=== PATIENT | female | born 1935 | race Caucasian/White ===

== ENCOUNTER 2019-11-30 18:37 | Emergency (ER) | payer OTHER, MEDICAID ==
[~2019-11-30] VITALS: Ht 142.2 cm; Wt 56.7 kg
[2019-11-30 18:52] VITALS: BP_SYST 154
--- NOTE | 2019-11-30 23:57 | NUR ---
called for bed placement. patient not in waiting room
--- NOTE | 2019-12-01 | NUR ---
called for bed placement. Patient not in waiting room.
--- NOTE | 2019-12-01 00:42 | NUR ---
called for bed placement. Patient left without being seen.
== END 2019-12-01 00:42 | disposition left against medical advice (07) ==
LOC: SED 18:37
DX: M79.89 Other specified soft tissue disorders (principal); Z53.21 Procedure and treatment not carried out due to patient leaving prior to being seen by health care provider

== ENCOUNTER 2020-11-06 13:13 | Inpatient (IN) | payer OTHER, MEDICAID, SELFPAY ==
[~2020-11-06] VITALS: Ht 157.5 cm; Wt 51.7 kg
[2020-11-06 13:13] VITALS: BP_SYST 82
[2020-11-06] MEDS ORDERED: NACL 0.9% 1,000 ML IV ONE ×2 (13:30→15:30)
[2020-11-06] MEDS ORDERED: ACET325T53 PO (13:44)
[2020-11-06] MEDS ORDERED: FLUO15CR49 TP (13:44)
[2020-11-06] MEDS ORDERED: FLUT16SP16 NS (13:44)
[2020-11-06] MEDS ORDERED: PEPTO PO (13:44)
[2020-11-06] MEDS ORDERED: DEC4 PO (13:44)
[2020-11-06] MEDS ORDERED: OMEP20CA15 PO (13:44)
[2020-11-06] MEDS ORDERED: HYDR-3610 PO (13:44)
[2020-11-06] MEDS ORDERED: GLIP10TA11 PO (13:44)
[2020-11-06] MEDS ORDERED: PIOG30TA70 PO (13:44)
[2020-11-06] MEDS ORDERED: [UNRECOGNIZED DRUG - CODE] OP (13:44)
[2020-11-06] MEDS ORDERED: ACETAMINOPHEN #3 PO (13:44)
[2020-11-06] MEDS ORDERED: ONDA4TAB5 PO (13:44)
[2020-11-06] MEDS ORDERED: DOCU-144 PO (13:44)
[2020-11-06] MEDS ORDERED: [UNRECOGNIZED DRUG - CODE] MC (13:44)
[2020-11-06] MEDS ORDERED: OLAN2.5T29 PO (13:44)
[2020-11-06] MEDS ORDERED: MULT-1117 PO (13:44)
[2020-11-06] MEDS ORDERED: HYDR-4272 PO (13:44)
[2020-11-06] MEDS ORDERED: VITC1TAB (13:44)
[2020-11-06] MEDS ORDERED: GABA-529 PO (13:44)
[2020-11-06] MEDS ORDERED: IBUP-2018 PO (13:44)
[2020-11-06 14:06] LABS: BASOPHILS # (AUTO) 0.1 K/uL (0.0-0.2); BASOPHILS % (AUTO) 0.5 % (0.0-2.0); HEMOGLOBIN 9.1 g/dL (12.0-16.0); LYMPHOCYTES # (AUTO) 0.7 K/uL (1.0-5.5); LYMPHOCYTES % (AUTO) 4.7 % (20.5-51.5); MEAN CORPUSCULAR HEMOGLOBIN 32 pg (27-31); MEAN CORPUSCULAR HGB CONC 33 % (32-36); MEAN CORPUSCULAR VOLUME 95 fL (79.0-98.0); MONOCYTES # (AUTO) 0.9 K/uL (0.0-1.0); MONOCYTES % (AUTO) 6.2 % (1.7-9.3); NEUTROPHILS # (AUTO) 12.9 K/uL (1.8-7.7); NEUTROPHILS % (AUTO) 88.6 % (40.0-70.0); PLATELET COUNT (AUTO) 141 K/uL (130-430); RED BLOOD CELL COUNT(AUTO) 2.87 MIL/uL (4.2-6.2); RED CELL DISTRIBUTION WIDTH 14.9 % (9.0-15.0); WHITE BLOOD COUNT (AUTO) 14.5 K/uL (4.8-10.8)
[2020-11-06 14:09] LABS: HEMATOCRIT 27.3 % (36-48)
[2020-11-06 14:11] LABS: ANION GAP 9 (5-15); CALCIUM 8.1 mg/dL (8.4-11.0); CHLORIDE 102 mmol/L (98-107); CREATININE 1.48 mg/dL (0.55-1.30); GLUCOSE 232 mg/dL (70-99); POTASSIUM 4.5 mmol/L (3.5-5.1); SODIUM SERUM 134 mmol/L (136-145); UREA NITROGEN, BLOOD 32 mg/dL (8-21)
[2020-11-06 14:17] LABS: ALANINE AMINOTRANSFERASE 15 U/L (12-78); ALBUMIN 2.7 g/dL (3.4-4.8); ASPARTATE AMINOTRANSFERASE 19 U/L (10-37); TOTAL BILIRUBIN 0.4 mg/dL (0.0-1.0)
[2020-11-06 14:45] LABS: BILIRUBIN,URINE NEGATIVE (NEGATIVE); CLARITY/URINE CLEAR (CLEAR); COLOR,URINE YELLOW (YELLOW); GLUCOSE,URINE NEGATIVE (NEGATIVE); KETONES,URINE NEGATIVE (NEGATIVE); LEUKOCYTE ESTERASE ,URINE 1+ (NEGATIVE); NITRITE, URINE NEGATIVE (NEGATIVE); PROTEIN URINE NEGATIVE (NEGATIVE); UROBILINOGEN,URINE 0.2 (0.2-1.0)
[2020-11-06 14:47] LABS: BLOOD, URINE TRACE (NEGATIVE)
[2020-11-06 14:53] LABS: BACTERIA,URINE FEW /HPF (None Seen); MUCUS,URINE 1+ /LPF (None Seen); RBC,URINE 0-3 /HPF (0-3)
[2020-11-06] MEDS ORDERED: cefTRIAXone 1 GM VIAL ONE (14:59)
[2020-11-06] MEDS ORDERED: cefTRIAXone 1 GM in D5W 50 ML IV ONE (15:00)
[2020-11-06 16:07] VITALS: BP_SYST 105
[2020-11-06] MEDS ORDERED: DEXTROSE 50% JECT 50 ML DISP.SYRIN IVP PRN (16:30)
[2020-11-06] MEDS ORDERED: NALOXONE HCL 0.4 MG/ML AMP (NARCAN) IVP PRN (16:45)
[2020-11-06] MEDS ORDERED: ONDANSETRON 4 MG ODT TAB PO PRN (16:45)
[2020-11-06] MEDS ORDERED: ACETAMINOPHEN 325 MG TABLET PO PRN (16:45)
[2020-11-06] MEDS: INSULIN REGULAR, HUMAN 100 UNITS/ML, 10 ML VIAL (humuLIN R) SUBCUT PRN (17:38)
[2020-11-06] MEDS: PIPERACILLIN/TAZO 2.25G/DEX-IS 50 ML IV SCH (19:15)
[2020-11-06 20:00] VITALS: BP_SYST 133
[2020-11-06] MEDS: GABAPENTIN 100 MG CAPSULE PO SCH (21:00)
[2020-11-06] MEDS ORDERED: OLANZapine 2.5 MG TABLET PO SCH (21:00)
[2020-11-06] MEDS ORDERED: PEG 400/HYPROMELLOSE/GLYCERIN 15 ML DROPS OP PRN (21:00)
[2020-11-06] MEDS: DOCUSATE SODIUM 100 MG CAPSULE PO SCH (21:00)
[2020-11-06] MEDS: NACL 0.9% 1,000 ML IV SCH (21:30)
[2020-11-07] MEDS: NACL 0.9% 1,000 ML IV SCH (02:30)
[2020-11-07 04:00] VITALS: BP_SYST 129
[2020-11-07] MEDS: PIPERACILLIN/TAZO 2.25G/DEX-IS 50 ML IV SCH ×4 (04:45→17:53)
[2020-11-07] MEDS: HYDROcodone/ACETAMIN 5-325 MG TAB (NORCO/ VICODIN) PO SCH ×2 (05:00→16:08)
[2020-11-07 07:10] LABS: BASOPHILS % (AUTO) 0.1 % (0.0-2.0); EOSINOPHILS # (AUTO) 0.1 K/uL (0.0-0.4); EOSINOPHILS % (AUTO) 0.8 % (0.0-4.0); HEMATOCRIT 27.7 % (36-48); HEMOGLOBIN 9.3 g/dL (12.0-16.0); LYMPHOCYTES # (AUTO) 0.8 K/uL (1.0-5.5); LYMPHOCYTES % (AUTO) 5.8 % (20.5-51.5); MEAN CORPUSCULAR HEMOGLOBIN 32 pg (27-31); MEAN CORPUSCULAR HGB CONC 34 % (32-36); MEAN CORPUSCULAR VOLUME 95 fL (79.0-98.0); MONOCYTES # (AUTO) 0.6 K/uL (0.0-1.0); MONOCYTES % (AUTO) 4.5 % (1.7-9.3); NEUTROPHILS # (AUTO) 12.1 K/uL (1.8-7.7); NEUTROPHILS % (AUTO) 88.8 % (40.0-70.0); PLATELET COUNT (AUTO) 147 K/uL (130-430); RED BLOOD CELL COUNT(AUTO) 2.92 MIL/uL (4.2-6.2); WHITE BLOOD COUNT (AUTO) 13.6 K/uL (4.8-10.8)
[2020-11-07 07:26] LABS: ALANINE AMINOTRANSFERASE 16 U/L (12-78); ALBUMIN 2.4 g/dL (3.4-4.8); ANION GAP 8 (5-15); ASPARTATE AMINOTRANSFERASE 19 U/L (10-37); CALCIUM 8.3 mg/dL (8.4-11.0); CHLORIDE 111 mmol/L (98-107); CREATININE 0.89 mg/dL (0.55-1.30); FREE T4 (FREE THYROXINE) 1.2 ng/dl (0.8-1.5); GLUCOSE 59 mg/dL (70-99); POTASSIUM 3.7 mmol/L (3.5-5.1); SODIUM SERUM 145 mmol/L (136-145); TOTAL BILIRUBIN 0.2 mg/dL (0.0-1.0); UREA NITROGEN, BLOOD 23 mg/dL (8-21)
[2020-11-07 08:00] VITALS: BP_SYST 154
[2020-11-07] MEDS ORDERED: PIOGLITAZONE HCL 30 MG TABLET PO SCH (09:00)
[2020-11-07] MEDS: DOCUSATE SODIUM 100 MG CAPSULE PO SCH ×3 (09:52→21:42)
[2020-11-07] MEDS: PANTOPRAZOLE SODIUM 40 MG TAB PO SCH (09:52)
[2020-11-07] MEDS: MULTIVITAMINS TAB 1 TABLET PO SCH (09:52)
[2020-11-07] MEDS: FLUTICASONE PROPIONATE 50 mCg/SPRAY 16 GM NS SCH (09:53)
[2020-11-07] MEDS: GABAPENTIN 100 MG CAPSULE PO SCH ×2 (09:53→21:40)
[2020-11-07 12:00] VITALS: BP_SYST 132
[2020-11-07] MEDS: INSULIN REGULAR, HUMAN 100 UNITS/ML, 10 ML VIAL (humuLIN R) SUBCUT PRN (12:20)
[2020-11-07 16:00] VITALS: BP_SYST 96
[2020-11-07 20:00] VITALS: BP_SYST 125
[2020-11-07] MEDS: OLANZapine 2.5 MG TABLET PO SCH (21:00)
[2020-11-08] MEDS: PIPERACILLIN/TAZO 2.25G/DEX-IS 50 ML IV SCH ×5 (00:25→23:17)
[2020-11-08 00:27] VITALS: BP_SYST 135
[2020-11-08] MEDS: NACL 0.9% 1,000 ML IV SCH ×4 (03:30→13:30)
[2020-11-08] MEDS ORDERED: HYDROcodone/ACETAMIN 5-325 MG TAB (NORCO/ VICODIN) PO PRN (07:31)
[2020-11-08] MEDS ORDERED: ACETAMINOPHEN/CODEINE 300 MG-30 MG TABLET PO PRN (07:45)
[2020-11-08 08:18] VITALS: BP_SYST 136
[2020-11-08] MEDS: DOCUSATE SODIUM 100 MG CAPSULE PO SCH ×2 (08:47→21:00)
[2020-11-08] MEDS: GABAPENTIN 100 MG CAPSULE PO SCH ×2 (08:47→21:18)
[2020-11-08] MEDS: FLUTICASONE PROPIONATE 50 mCg/SPRAY 16 GM NS SCH (08:47)
[2020-11-08] MEDS: MULTIVITAMINS TAB 1 TABLET PO SCH (08:47)
[2020-11-08] MEDS: PANTOPRAZOLE SODIUM 40 MG TAB PO SCH (08:47)
[2020-11-08 12:00] VITALS: BP_SYST 126
[2020-11-08] MEDS: INSULIN REGULAR, HUMAN 100 UNITS/ML, 10 ML VIAL (humuLIN R) SUBCUT PRN ×2 (17:15→21:24)
[2020-11-08 19:23] VITALS: BP_SYST 158
[2020-11-08] MEDS: OLANZapine 2.5 MG TABLET PO SCH (21:00)
[2020-11-09] VITALS: BP_SYST 126
[2020-11-09] MEDS: PIPERACILLIN/TAZO 2.25G/DEX-IS 50 ML IV SCH ×2 (06:19→12:08)
[2020-11-09 06:53] LABS: BASOPHILS # (AUTO) 0.1 K/uL (0.0-0.2); BASOPHILS % (AUTO) 0.8 % (0.0-2.0); EOSINOPHILS # (AUTO) 0.2 K/uL (0.0-0.4); EOSINOPHILS % (AUTO) 2.1 % (0.0-4.0); HEMATOCRIT 27.4 % (36-48); HEMOGLOBIN 9.5 g/dL (12.0-16.0); LYMPHOCYTES # (AUTO) 1.4 K/uL (1.0-5.5); MEAN CORPUSCULAR HEMOGLOBIN 32 pg (27-31); MEAN CORPUSCULAR HGB CONC 35 % (32-36); MEAN CORPUSCULAR VOLUME 94 fL (79.0-98.0); MONOCYTES # (AUTO) 0.6 K/uL (0.0-1.0); MONOCYTES % (AUTO) 6.6 % (1.7-9.3); NEUTROPHILS # (AUTO) 6.3 K/uL (1.8-7.7); NEUTROPHILS % (AUTO) 74.5 % (40.0-70.0); PLATELET COUNT (AUTO) 176 K/uL (130-430); RED BLOOD CELL COUNT(AUTO) 2.93 MIL/uL (4.2-6.2); RED CELL DISTRIBUTION WIDTH 14.7 % (9.0-15.0); WHITE BLOOD COUNT (AUTO) 8.5 K/uL (4.8-10.8)
[2020-11-09 07:44] LABS: ANION GAP 9 (5-15); CALCIUM 8.5 mg/dL (8.4-11.0); CHLORIDE 110 mmol/L (98-107); CREATININE 0.85 mg/dL (0.55-1.30); GLUCOSE 86 mg/dL (70-99); POTASSIUM 3.7 mmol/L (3.5-5.1); SODIUM SERUM 145 mmol/L (136-145); UREA NITROGEN, BLOOD 7 mg/dL (8-21)
[2020-11-09 08:27] VITALS: BP_SYST 152
[2020-11-09] MEDS: DOCUSATE SODIUM 100 MG CAPSULE PO SCH (09:00)
[2020-11-09] MEDS: MULTIVITAMINS TAB 1 TABLET PO SCH (09:44)
[2020-11-09] MEDS: GABAPENTIN 100 MG CAPSULE PO SCH (09:45)
[2020-11-09] MEDS: FLUTICASONE PROPIONATE 50 mCg/SPRAY 16 GM NS SCH (09:45)
[2020-11-09] MEDS: PANTOPRAZOLE SODIUM 40 MG TAB PO SCH (09:45)
[2020-11-09 11:46] VITALS: BP_SYST 145
[2020-11-09] MEDS ORDERED: LEVO500T89 PO (12:11)
[2020-11-09 15:17] VITALS: BP_SYST 145
== END 2020-11-09 17:42 | disposition home health service (06) | DRG 871 ==
LOC: SED 13:13 → STU 15:50
PROVIDERS: ADMIT Internal Medicine; ATTEND Internal Medicine
DX: A41.9 Sepsis, unspecified organism (principal); N17.0 Acute kidney failure with tubular necrosis; G93.41 Metabolic encephalopathy; N39.0 Urinary tract infection, site not specified; E44.0 Moderate protein-calorie malnutrition; I44.7 Left bundle-branch block, unspecified; M54.32 Sciatica, left side; E78.5 Hyperlipidemia, unspecified; F32.9 Major depressive disorder, single episode, unspecified; R07.89 Other chest pain; E11.40 Type 2 diabetes mellitus with diabetic neuropathy, unspecified; C50.919 Malignant neoplasm of unspecified site of unspecified female breast; E86.0 Dehydration; Z20.822 Contact with and (suspected) exposure to COVID-19; D64.9 Anemia, unspecified; G89.4 Chronic pain syndrome; K21.9 Gastro-esophageal reflux disease without esophagitis; I10 Essential (primary) hypertension; Z91.041 Radiographic dye allergy status; Z79.899 Other long term (current) drug therapy; Z68.20 Body mass index [BMI] 20.0-20.9, adult
CPT/HCPCS: 36415; 71045; 72131; 76376; 80048; 80053; 81000-TC; 82550-TC; 82962; 83036; 83605; 84439; 84484; 85025; 87040-TC; 87086; 93005; 93306; 96361; 96365; 97110-GP; 97116-GP; 97530-GP; G0378; J0696; J1815; J2543; J7030

== ENCOUNTER 2023-06-20 08:03 | Emergency (ER) | payer OTHER, MEDICAID ==
[~2023-06-20] VITALS: Ht 157.5 cm; Wt 65.8 kg
[~2023-06-20 08:03] MED LIST: ACET325T53 PO; ACETAMINOPHEN #3 PO; DEC4 PO; DOCU-144 PO; FLUO15CR49 TP; FLUT16SP16 NS; GABA-529 PO; GLIP10TA11 PO; HYDR-3610 PO; HYDR-4272 PO; IBUP-2018 PO; LEVO-62 PO; MULT-1117 PO; OLAN2.5T29 PO; OMEP20CA15 PO; ONDA4TAB5 PO; PEPTO PO; PIOG30TA70 PO; VITC1TAB; [UNRECOGNIZED DRUG - CODE] MC; [UNRECOGNIZED DRUG - CODE] OP
[2023-06-20 08:09] VITALS: BP_SYST 126; PULSE 67; RESP 19; TEMP 97.9; O2SAT 98
[2023-06-20 08:10] VITALS: BP_SYST 127; PULSE 70; RESP 19; TEMP 98; O2SAT 98
[2023-06-20 08:37] LABS: BASOPHILS % (AUTO) 0.8 % (0.0-2.0); EOSINOPHILS # (AUTO) 0.1 K/uL (0.0-0.4); HEMATOCRIT 38.4 % (36-48); HEMOGLOBIN 12.7 g/dL (12.0-16.0); LYMPHOCYTES # (AUTO) 0.8 K/uL (1.0-5.5); LYMPHOCYTES % (AUTO) 25.9 % (20.5-51.5); MEAN CORPUSCULAR HEMOGLOBIN 33 pg (27-31); MEAN CORPUSCULAR HGB CONC 33 % (32-36); MEAN CORPUSCULAR VOLUME 99 fL (79.0-98.0); MONOCYTES # (AUTO) 0.4 K/uL (0.0-1.0); NEUTROPHILS # (AUTO) 1.8 K/uL (1.8-7.7); NEUTROPHILS % (AUTO) 57.3 % (40.0-70.0); PLATELET COUNT (AUTO) 104 K/uL (130-430); RED CELL DISTRIBUTION WIDTH 13.7 % (9.0-15.0); WHITE BLOOD COUNT (AUTO) 3.2 K/uL (4.8-10.8)
[2023-06-20 08:45] LABS: ANION GAP 8 (5-15); CALCIUM 9.5 mg/dL (8.4-11.0); CARBON DIOXIDE 28 mmol/L (23-29); CHLORIDE 103 mmol/L (98-107); CREATININE 0.91 mg/dL (0.55-1.30); GLUCOSE 109 mg/dL (74-106); POTASSIUM 3.8 mmol/L (3.5-5.1); SODIUM SERUM 139 mmol/L (136-145); UREA NITROGEN, BLOOD 10 mg/dL (8-21)
[2023-06-20] MEDS ORDERED: ACETAMINOPHEN 500 MG TABLET PO ONE (08:45)
[2023-06-20 08:47] LABS: PROTHROMBIN TIME 10.7 SECS (9.5-12.5)
[2023-06-20 08:51] LABS: ALANINE AMINOTRANSFERASE 19 U/L (12-78); ALBUMIN 3.6 g/dL (3.4-4.8); ASPARTATE AMINOTRANSFERASE 30 U/L (10-37); CREATINE KINASE, TOTAL 164 U/L (26-192); LIPASE 32 U/L (73-393); TOTAL BILIRUBIN 0.4 mg/dL (0.0-1.0); TOTAL PROTEIN, SERUM 7.5 g/dL (6.4-8.3)
[2023-06-20 09:17] LABS: BILIRUBIN,URINE NEGATIVE (NEGATIVE); CLARITY/URINE Clear (CLEAR); COLOR,URINE YELLOW (YELLOW); GLUCOSE,URINE NEGATIVE (NEGATIVE); KETONES,URINE NEGATIVE (NEGATIVE); NITRITE, URINE NEGATIVE (NEGATIVE); PROTEIN URINE NEGATIVE (NEGATIVE); UROBILINOGEN,URINE 0.2 (0.2-1.0)
[2023-06-20 09:20] LABS: BLOOD, URINE TRACE (NEGATIVE); LEUKOCYTE ESTERASE ,URINE NEGATIVE (NEGATIVE)
[2023-06-20 09:35] LABS: BACTERIA,URINE None Seen /HPF (None Seen); RBC,URINE 0-3 /HPF (0-3); WBC,URINE 0-3 /HPF (0-3)
[2023-06-20] MEDS ORDERED: ACET-2634 PO (10:59)
[2023-06-20] MEDS ORDERED: NAPR-1172 PO (10:59)
[2023-06-20] MEDS ORDERED: LIDOINT TP (10:59)
[2023-06-20 15:32] VITALS: BP_SYST 127; PULSE 70; RESP 19; TEMP 98; O2SAT 98
== END 2023-06-20 15:31 | disposition home or self-care (01) ==
LOC: SED 08:03
DX: R07.9 Chest pain, unspecified (principal); K21.9 Gastro-esophageal reflux disease without esophagitis; E11.9 Type 2 diabetes mellitus without complications; I50.9 Heart failure, unspecified; Z85.3 Personal history of malignant neoplasm of breast; Z91.041 Radiographic dye allergy status; Z79.899 Other long term (current) drug therapy
CPT/HCPCS: 36415; 71045; 80053; 81000; 81003; 82550; 83690; 83880; 84484; 85025; 85610-TC; 85730-TC; 93005; 99285